=== PATIENT | female | born 1960 | race Caucasian/White ===

== ENCOUNTER 2021-12-16 16:08 | Observation (INO) ==
[2021-12-16] MEDS ORDERED: Ipratropium/Albuterol Neb 3 ML IH ONE (20:48)
[2021-12-16] MEDS ORDERED: Budesonide Neb 0.5 MG/2 ML IH ONE (20:48)
[2021-12-16] MEDS ORDERED: *HR* Labetalol 20 MG/4 ML SYRINGE IVP ONE (21:33)
[2021-12-16 21:39] LABS: Influenza A PCR Negative (Negative); Influenza B PCR Negative (Negative); Resp. Syncytial Virus PCR Negative (Negative)
[2021-12-16 21:41] LABS: SARS-CoV-2 by PCR (In House) Negative (Negative)
[2021-12-16] MEDS ORDERED: cefTRIAXone 1,000 MG in Water for inj. (sterile) 10 ML IVP ONE (21:59)
[2021-12-16] MEDS ORDERED: Azithromycin 500 MG in 0.9 % Sodium Chloride 250 ML IVPB ONE (21:59)
[2021-12-16 22:05] LABS: Basophils % 0.4 %; Eosinophils % 0.4 %; Hematocrit 39.1 % (35.3-44.9); Hemoglobin 13.4 g/dL (11.5-15.4); Immature Granulocytes % 0.4 % (0-4); Lymphocytes # 1.5 K/mcL (0.6-4.6); Lymphocytes % 30.7 %; Mean Corpuscular HGB Conc 34.3 g/dL (31.6-35.5); Mean Corpuscular Hemoglobin 29.8 pg (28.0-33.3); Mean Corpuscular Volume 86.9 fL (83.0-100.0); Mean Platelet Volume 10.9 fL (9.4-12.4); Monocytes # 0.5 K/mcL (0.0-1.3); Neutrophils # 2.9 K/mcL (1.6-8.9); Platelet Count 145 K/mcL (140-400); Segmented Neutrophils % 58.1 %
[2021-12-16 22:27] LABS: Alanine Aminotransferase 24 Units/L (7-52); Albumin 4.1 g/dL (3.5-5.7); Albumin/Globulin Ratio 1.4 (1.1-2.2); Alkaline Phosphatase 73 Units/L (34-104); Aspartate Amino Transferase 39 Units/L (13-39); BUN/Creatinine Ratio 15 (6-26); Bilirubin,Total 0.5 mg/dL (0.3-1.0); Blood Urea Nitrogen 15 mg/dL (8-23); Calcium 8.9 mg/dL (8.6-10.3); Carbon Dioxide 30 mEq/L (23-29); Chloride 100 mEq/L (98-107); Glucose 119 mg/dL (70-105); Osmolality,Calculated 292 (280-300); Potassium 2.7 mEq/L (3.5-5.1); Sodium 140 mEq/L (136-145); Total Protein 7.1 g/dL (6.4-8.9); Troponin I 0.06 ng/mL (< 0.04); eGFR For African Americans > 60 (> 60); eGFR For Non-African Americans 58 (> 60)
[2021-12-16] MEDS ORDERED: Isovue-370 500 ML BOTTLE IVP ONE (22:39)
[2021-12-17] MEDS ORDERED: Ondansetron 4 MG/2 ML VIAL IVP PRN (03:09)
[2021-12-17] MEDS ORDERED: Naloxone 0.4 MG/ML INJ IVP PRN (03:09)
[2021-12-17] MEDS ORDERED: Melatonin 3 MG TABLET PO PRN (03:09)
[2021-12-17] MEDS ORDERED: Acetaminophen 325 MG TABLET PO PRN (03:09)
[2021-12-17] MEDS ORDERED: hydrALAZINE 10 MG TABLET PO PRN (03:57)
[2021-12-17 06:02] LABS: Basophils % 0.3 %; Hematocrit 40.4 % (35.3-44.9); Hemoglobin 13.2 g/dL (11.5-15.4); Immature Granulocytes % 0.3 % (0-4); Lymphocytes # 0.6 K/mcL (0.6-4.6); Lymphocytes % 15.5 %; Mean Corpuscular HGB Conc 32.7 g/dL (31.6-35.5); Mean Corpuscular Hemoglobin 28.6 pg (28.0-33.3); Mean Corpuscular Volume 87.4 fL (83.0-100.0); Mean Platelet Volume 10.9 fL (9.4-12.4); Monocytes # 0.1 K/mcL (0.0-1.3); Monocytes % 3.5 %; Neutrophils # 3.2 K/mcL (1.6-8.9); Platelet Count 151 K/mcL (140-400); Red Blood Count 4.62 M/mcL (3.82-4.97); Red Cell Distribution Width 13.2 % (11.5-14.5); Segmented Neutrophils % 80.4 %
[2021-12-17 06:19] LABS: Alanine Aminotransferase 21 Units/L (7-52); Albumin 4.1 g/dL (3.5-5.7); Albumin/Globulin Ratio 1.4 (1.1-2.2); Alkaline Phosphatase 71 Units/L (34-104); Aspartate Amino Transferase 33 Units/L (13-39); BUN/Creatinine Ratio 18 (6-26); Bilirubin,Total 0.4 mg/dL (0.3-1.0); Blood Urea Nitrogen 16 mg/dL (8-23); Carbon Dioxide 30 mEq/L (23-29); Chloride 100 mEq/L (98-107); Globulin 2.9 g/dL (2.4-3.5); Glucose 157 mg/dL (70-105); Osmolality,Calculated 290 (280-300); Phosphorous 2.5 mg/dL (2.7-4.5); Potassium 2.9 mEq/L (3.5-5.1); Sodium 138 mEq/L (136-145); eGFR For African Americans > 60 (> 60); eGFR For Non-African Americans > 60 (> 60)
[2021-12-17] MEDS: Ipratropium/Albuterol Neb 3 ML IH SCH ×4 (11:35→20:36)
[2021-12-17] MEDS: *HR* Heparin 5,000 UNIT/ML VIAL SQ SCH (17:59)
[2021-12-17 19:10] LABS: BUN/Creatinine Ratio 20 (6-26); Blood Urea Nitrogen 17 mg/dL (8-23); Calcium 9.1 mg/dL (8.6-10.3); Carbon Dioxide 28 mEq/L (23-29); Chloride 100 mEq/L (98-107); Glucose 154 mg/dL (70-105); Osmolality,Calculated 291 (280-300); Sodium 138 mEq/L (136-145); eGFR For African Americans > 60 (> 60); eGFR For Non-African Americans > 60 (> 60)
[2021-12-18] MEDS: Ipratropium/Albuterol Neb 3 ML IH SCH ×3 (00:08→07:35)
[2021-12-18] MEDS: *HR* Heparin 5,000 UNIT/ML VIAL SQ SCH (04:16)
[2021-12-18 06:50] LABS: Basophils % 0.3 %; Hemoglobin 13.6 g/dL (11.5-15.4); Immature Granulocytes % 0.9 % (0-4); Lymphocytes # 1.7 K/mcL (0.6-4.6); Lymphocytes % 23.8 %; Mean Corpuscular Hemoglobin 29.8 pg (28.0-33.3); Mean Corpuscular Volume 87.7 fL (83.0-100.0); Mean Platelet Volume 10.9 fL (9.4-12.4); Monocytes # 0.4 K/mcL (0.0-1.3); Monocytes % 6.3 %; Neutrophils # 4.8 K/mcL (1.6-8.9); Platelet Count 170 K/mcL (140-400); Red Blood Count 4.56 M/mcL (3.82-4.97); Red Cell Distribution Width 13.1 % (11.5-14.5); Segmented Neutrophils % 68.7 %
[2021-12-18 07:48] LABS: BUN/Creatinine Ratio 22 (6-26); Blood Urea Nitrogen 17 mg/dL (8-23); Calcium 9.4 mg/dL (8.6-10.3); Carbon Dioxide 25 mEq/L (23-29); Chloride 102 mEq/L (98-107); Glucose 138 mg/dL (70-105); Magnesium 2.1 mg/dL (1.6-2.6); Osmolality,Calculated 288 (280-300); Potassium 2.9 mEq/L (3.5-5.1); Sodium 137 mEq/L (136-145); eGFR For African Americans > 60 (> 60); eGFR For Non-African Americans > 60 (> 60)
[2021-12-18] MEDS ORDERED: lisinopriL 10 MG TABLET PO SCH (08:00)
[2021-12-18] MEDS ORDERED: Ipratropium/Albuterol Neb 3 ML IH PRN (08:22)
[2021-12-18] MEDS ORDERED: Azithromycin 250 MG TABLET PO SCH (09:00)
[2021-12-18] MEDS ORDERED: cefTRIAXone 1,000 MG in 0.9 % Sodium Chloride Mini Bag 100 ML IVP SCH (09:00)
[2021-12-18 15:21] LABS: BUN/Creatinine Ratio 19 (6-26); Blood Urea Nitrogen 17 mg/dL (8-23); Calcium 9.4 mg/dL (8.6-10.3); Carbon Dioxide 29 mEq/L (23-29); Chloride 102 mEq/L (98-107); Glucose 127 mg/dL (70-105); Osmolality,Calculated 291 (280-300); Potassium 3.2 mEq/L (3.5-5.1); Sodium 139 mEq/L (136-145); eGFR For African Americans > 60 (> 60); eGFR For Non-African Americans > 60 (> 60)
[2021-12-18 15:53] VITALS: BP 159/93; PULSE 92; TEMP 98.2; O2SAT 92
== END 2021-12-18 17:55 | disposition home or self-care (01) ==
LOC: EMEROOARM 16:08 → 3BNU 16:08 → SUATTDRO 12-17 01:29 → 3BNU 12-17 02:51
PROVIDERS: ADMIT Family Medicine; ATTEND Internal Medicine

== ENCOUNTER 2022-05-07 00:21 | Observation (INO) ==
[2022-05-07 01:12] LABS: Basophils # 0.1 K/mcL (0.0-0.2); Basophils % 0.7 %; Eosinophils # 0.1 K/mcL (0.0-0.6); Eosinophils % 0.9 %; Hematocrit 37.5 % (35.3-44.9); Immature Granulocytes % 0.3 % (0-4); Lymphocytes # 1.9 K/mcL (0.6-4.6); Mean Corpuscular HGB Conc 34.7 g/dL (31.6-35.5); Mean Corpuscular Hemoglobin 30.2 pg (28.0-33.3); Mean Platelet Volume 11.1 fL (9.4-12.4); Monocytes # 0.7 K/mcL (0.0-1.3); Monocytes % 8.4 %; Neutrophils # 6.1 K/mcL (1.6-8.9); Platelet Count 204 K/mcL (140-400); Red Blood Count 4.31 M/mcL (3.82-4.97); Segmented Neutrophils % 68.7 %; White Blood Count 8.8 K/mcL (4.3-11.1)
[2022-05-07 01:36] LABS: Alanine Aminotransferase 21 Units/L (7-52); Albumin/Globulin Ratio 1.4 (1.1-2.2); Alkaline Phosphatase 76 Units/L (34-104); Aspartate Amino Transferase 21 Units/L (13-39); BUN/Creatinine Ratio 18 (6-26); Bilirubin,Total 0.5 mg/dL (0.3-1.0); Blood Urea Nitrogen 19 mg/dL (8-23); Calcium 9.6 mg/dL (8.6-10.3); Carbon Dioxide 23 mEq/L (23-29); Chloride 100 mEq/L (98-107); Creatine Kinase 53 Units/L (30-223); Globulin 2.9 g/dL (2.4-3.5); Glucose 215 mg/dL (70-105); Magnesium 1.7 mg/dL (1.6-2.6); Osmolality,Calculated 293 (280-300); Potassium 2.7 mEq/L (3.5-5.1); Sodium 137 mEq/L (136-145); Total Protein 6.9 g/dL (6.4-8.9); eGFR For African Americans > 60 (> 60); eGFR For Non-African Americans 52 (> 60)
[2022-05-07 01:37] LABS: ABG Base Excess 1 mEq/L (-2 to 3); ABG HCO3 25 mEq/L (21-27); ABG Oxygen Saturation 97 % (95-98); ABG PCO2 40 mmHg (35-45); ABG PH 7.41 pH Units (7.32-7.45); ABG PO2 91 mmHg (85-104); ABG TCO2 27 mEq/L (20-26)
[2022-05-07] MEDS ORDERED: Ipratropium/Albuterol Neb 3 ML IH ONE (01:39)
[2022-05-07] MEDS ORDERED: Iopamidol - 370 500 ML MLS IVP ONE ×2 (01:39→04:36)
[2022-05-07] MEDS ORDERED: Albuterol 2.5 MG/3 ML NEBULIZER IH ONE (01:39)
[2022-05-07 01:49] LABS: Thyroid Stimulating Hormone 2.462 mcIU/mL (0.340-5.600)
[2022-05-07 02:31] LABS: Acetaminophen < 10 mcg/mL (10-20); Ethanol < 10 mg/dL (Less than 10); Salicylate < 2.5 mg/dL (15.0-30.0)
[2022-05-07 04:33] LABS: Bilirubin,Urine Negative (Negative); Blood,Urine Negative (Negative); Clarity,Urine Clear (Clear); Color,Urine Colorless (Yellow); Glucose,Urine (UA) Normal (Normal); Ketones,Urine Negative (Negative); Leukocyte Esterase,Urine Negative (Negative); Nitrite,Urine Negative (Negative); PH,Urine 5.5 pH Units (5.0-8.0); Protein,Urine Negative (Neg-Trace); Specific Gravity,Urine > 1.030 (1.010-1.025); Urobilinogen,Urine Normal (Normal)
[2022-05-07 04:34] LABS: Amphetamine Screen,Urine Negative ng/mL (Cutoff=1000); Barbiturate Screen,Urine Negative ng/mL (Cutoff=200); Benzodiazepines Screen,Urine Negative ng/mL (Cutoff=200); Cannabinoid Screen,Urine Positive ng/mL (Cutoff = 50); Cocaine Screen,Urine Negative ng/mL (Cutoff= 300); Opiate Screen,Urine Negative ng/mL (Cutoff=300); Phencyclidine Screen,Urine Negative ng/mL (Cutoff=25)
[2022-05-07] MEDS ORDERED: 0.9 % Sodium Chloride 1,000 ML IVC ONE (06:39)
[2022-05-07 07:05] LABS: Adenovirus Not Detected (Not Detect); Bordetella Pertussis Not Detected (Not Detect); Chlamydophila pneumoniae Not Detected (Not Detect); Coronavirus 229E Not Detected (Not Detect); Coronavirus HKU1 Not Detected (Not Detect); Coronavirus NL63 Not Detected (Not Detect); Coronavirus OC43 Not Detected (Not Detect); Human Metapneumovirus Not Detected (Not Detect); Human Rhinovirus/Enterovirus Not Detected (Not Detect); Influenza A Subtype 2009 H1 Not Detected (Not Detect); Influenza B Not Detected (Not Detect); Mycoplasma pneumoniae Not Detected (Not Detect); Parainfluenza Virus 1 Not Detected (Not Detect); Parainfluenza Virus 2 Not Detected (Not Detect); Parainfluenza Virus 3 Not Detected (Not Detect); Parainfluenza Virus 4 Not Detected (Not Detect); Respiratory Syncytial Virus Not Detected (Not Detect); SARS-CoV-2 Not Detected (Not Detect)
[2022-05-07] MEDS ORDERED: Naloxone 0.4 MG/ML INJ IVP PRN (07:25)
[2022-05-07] MEDS ORDERED: Melatonin 3 MG TABLET PO PRN (07:25)
[2022-05-07] MEDS ORDERED: Ringers Solution, Lactated 1,000 ML IVC SCH (14:00)
[2022-05-08 06:50] LABS: BUN/Creatinine Ratio 17 (6-26); Blood Urea Nitrogen 15 mg/dL (8-23); Calcium 9.2 mg/dL (8.6-10.3); Carbon Dioxide 27 mEq/L (23-29); Chloride 106 mEq/L (98-107); Glucose 113 mg/dL (70-105); Osmolality,Calculated 292 (280-300); Potassium 3.4 mEq/L (3.5-5.1); Sodium 140 mEq/L (136-145); eGFR For African Americans > 60 (> 60); eGFR For Non-African Americans > 60 (> 60)
[2022-05-08 08:11] VITALS: TEMP 98.1
[2022-05-08] MEDS ORDERED: Cyanocobalamin (B-12) 1,000 MCG TABLET PO SCH (09:00)
[2022-05-08] MEDS ORDERED: amLODIPine 5 MG TABLET PO SCH (09:00)
[2022-05-08 11:05] VITALS: PULSE 60; O2SAT 95
[2022-05-08 11:56] VITALS: BP 166/84
== END 2022-05-08 14:26 | disposition home or self-care (01) ==
LOC: EMEROOARM 00:21 → 3BNU 00:21
PROVIDERS: ADMIT Internal Medicine; ATTEND Internal Medicine